=== PATIENT | female | born 1955 | race Caucasian/White ===

== ENCOUNTER 2018-07-30 11:44 | Emergency (ER) | payer OTHER ==
[~2018-07-30] VITALS: Ht 165.1 cm; Wt 84.0 kg
[2018-07-30 12:01] VITALS: Ht 165.1 cm; Wt 84.0 kg
[2018-07-30] MEDS ORDERED: KETOROLAC 30 MG INJ IM STA (14:40)
--- NOTE | 2018-07-30 18:30 | ERD ---
ER Documentation Chief Complaint Chief Complaint left arm, lower back and left hip pain s/p slip and fall yesterday no ko HPI 63-year-old female slipped on some dog urine yesterday. She fell on her left side. She has left humerus pain, low back pain, left hip pain. She has a history of arthritis and right hip replacement. She denies any head injury, loss of consciousness, vomiting, visual changes. ROS All systems reviewed and are negative except as per history of present illness. Allergies Allergies: Coded Allergies: No Known Allergy (Verified Allergy, Unknown, 09/08/07) PMhx/Soc History of Surgery: Yes (ORTHO REPLACEMENT: RIGHT HIP, LEFT KNEE) Anesthesia Reaction: No Hx Neurological Disorder: No Hx Respiratory Disorders: No Hx Cardiac Disorders: Yes (HTN, HYPERLIPIDEMIA) Hx Psychiatric Problems: No Hx Miscellaneous Medical Probl: Yes (DM) Hx Alcohol Use: No Hx Substance Use: No Hx Tobacco Use: Yes Smoking Status: Current every day smoker Physical Exam Vitals Vital Signs Date Temp Pulse Resp B/P (MAP) Pulse Ox O2 O2 Flow FiO2 Time Delivery Rate 07/30/18 97.9 113 20 138/67 98 12:01 (90) Physical Exam Const: No acute distress Head: Atraumatic Eyes: Normal Conjunctiva ENT: Normal External Ears, Nose and Mouth. Neck: Full range of motion. No meningismus. Resp: Clear to auscultation bilaterally Cardio: Regular rate and rhythm, no murmurs Abd: Soft, non tender, non distended. Normal bowel sounds Skin: No petechiae or rashes Back: No midline or flank tenderness Ext: No cyanosis, or edema. Tenderness left proximal humerus. Tenderness with passive range of motion of left hip and generalized tenderness lumbar paraspinous area. Neur: Awake and alert Psych: Normal Mood and Affect Results 24 hrs Current Medications Medications Dose Sig/Seng Start Time Status Last (Trade) Ordered Route PRN Stop Time Admin Dose Reason Admin Ketorolac 30 mg ONCE STAT 07/30/18 DC 07/30/18 Tromethamine IM 14:40 14:48 (Toradol) 07/30/18 14:42 Procedures/MDM X-ray left humerus 2V Interpreted by me: Bones: No fracture Joints: No dislocation Foreign body: None impression-normal left humerus x-ray X-ray left Elbow 3V Interpreted by me: Fat Pads: Normal Bones: No fracture Joints: No dislocation Foreign body: None impression-normal left elbow x-ray X-ray LS-Spine 3V Interpreted by me: Bones: No fracture, or lytic lesions Joints: No dislocation Foreign body: None. Impression-chronic superior endplate compression fracture L1. Degenerative changes. X-ray left hip 2V Interpreted by me: Bones: Possible fracture left femoral neck without displacement. Joints: No dislocation Foreign body: None. Impression-possible impaction left femoral neck without displacement. CT left hip shows no fracture identified. 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 Lumbar spine shows chronic compression fracture without acute fracture dislocation. Given Toradol pain. Patient presents with low back pain, left hip pain, left upper extremity after mechanical fall yesterday. She has no evidence of fracture, signs of head injury, deficits, additional concerning signs or s ymptoms. She will discharged home with continuation of home pain medications, orthopedic and primary care follow-up and return precautions. Departure Diagnosis: Primary Impression: Strain of left hip Encounter type: initial encounter Qualified Codes: S76.012A - Strain of muscle, fascia and tendon of left hip, initial encounter Additional Impression: Fall Encounter type: initial encounter Qualified Codes: W19.XXXA - Unspecified fall, initial encounter Condition: Stable Patient Instructions: Back Sprain/Strain, Hip Strain Additional Instructions: No fracture seen on studies today. Recheck with primary doctor or for new or worsening symptoms. Continue current pain medication. GERTRUDIS KAMARA MD Jul 30, 2018 18:30
[2018-07-30 18:53] VITALS: BP 158/75; PULSE 104; RESP 20
== END 2018-07-30 18:54 | disposition home or self-care (01) ==
LOC: FTE 11:44
DX: S76.012A Strain of muscle, fascia and tendon of left hip, initial encounter (principal); I10 Essential (primary) hypertension; E11.9 Type 2 diabetes mellitus without complications; F17.210 Nicotine dependence, cigarettes, uncomplicated; W01.0XXA Fall on same level from slipping, tripping and stumbling without subsequent striking against object, initial encounter; Y92.9 Unspecified place or not applicable; Z96.641 Presence of right artificial hip joint; Z96.652 Presence of left artificial knee joint
CPT/HCPCS: 72100; 72131; 73060; 73080; 73510; 73700; 96372; 99285; J1885